=== PATIENT | female | born 1985 | race Caucasian/White ===

== ENCOUNTER 2016-11-27 11:45 | Emergency (ER) | payer MEDICAID ==
[~2016-11-27] VITALS: Ht 160 cm; Wt 64.0 kg
[2016-11-27 11:48] VITALS: Ht 160 cm; Wt 64.0 kg
[2016-11-27] MEDS ORDERED: AZIT250T94 PO (12:51)
[2016-11-27] MEDS ORDERED: BENZ100C70 PO (12:51)
--- NOTE | 2016-11-27 12:53 | ERD ---
ER Documentation Chief Complaint Date/Time DATE: 11/27/16 TIME: 12:51 Chief Complaint CHEST CONGESTION,COUGH X 1 WEEK HPI 31-year-old female presents with cough and congestion for 1 week. She has tried taking habh-gmm-tocbftn allergy medication but it did not help. Cough is dry and worse at night. Unsure if she has had a fever. Denies any abdominal pain, nausea, vomiting, or diarrhea. ROS All systems reviewed and are negative except as per history of present illness. Medications Home Meds Active Scripts Benzonatate* (Tessalon Perle*) 100 Mg Capsule, 100 MG PO Q8H Y for COUGH, #15 CAP Prov:PILO VICTORIA PA-C 11/27/16 Azithromycin* (Zithromax*) 250 Mg Tablet, 250 MG PO .ZPACK DIRECTED, #6 TAB TAKE 500 MG (2 TABS) THE FIRST DAY THEN 250 MG (1 TAB) DAYS 2-5 Prov:PILO VICTORIA PA-C 11/27/16 FmHx Family History: No diabetes Physical Exam Vitals Vital Signs Date Time Temp Pulse Resp B/P Pulse Ox O2 Delivery O2 Flow Rate FiO2 11/27/16 11:48 97.2 78 18 109/66 98 Physical Exam General: well developed, well nourished, alert, nontoxic, no distress Head: normocephalic, atraumatic Neck: Supple, nontender, no lymphadenopathy, no midline tenderness Oropharynx: no tonsilar erythema or edema, uvula midline, no exudates, no kissing tonsils, no drooling Respiratory: Clear to auscaultation bilaterally, speaks in full sentences, no use of accesory muscles or labored breathing, no rales, ronchi, or wheezing Cardiovascular: RRR, No murmurs GI: soft, non tender, non distended, negative murphys sign, negative mcburneys point tenderness, no cva tenderness bilaterally, no rebound or guarding Back: no midline tenderness, no step offs or bony abnormalities, sensation to light touch in tact Procedures/MDM Patient has cough and congestion for 1 week. She has tried peso-ily-skcchkc medications without relief. Vital signs are stable she is well-appearing in no distress. She was given prescription for Tessalon Perles and a vxig-dkv-hlo prescription for azithromycin. Recommended this patient follow up with her primary care doctor within 48 hours or return to the emergency room for any worsening of symptoms. However this time I do believe there is suitable for outpatient management. I answered all their questions and they agreed with the plan and were discharged home. Departure Diagnosis: Primary Impression: Bronchitis Condition: Stable Patient Instructions: Bronchitis, Antiobiotic Treatment (Adult) Additional Instructions: Call your primary care doctor TOMORROW for an appointment during the next 1-2 days.See the doctor sooner or return here if your condition worsens before your appointment time. PILO VICTORIA PA-C Nov 27, 2016 12:53
[2016-11-27 13:12] VITALS: BP 105/68; PULSE 77; RESP 18
== END 2016-11-27 13:14 | disposition home or self-care (01) ==
LOC: FTE 11:45 → EDBD 11:45 → FTE 13:14
DX: J20.9 Acute bronchitis, unspecified (principal)
CPT/HCPCS: 99284